=== PATIENT | female | born 1955 | race Caucasian/White ===

== ENCOUNTER 2019-10-15 08:47 | Day surgery (SDC) ==
--- NOTE | 2019-10-07 08:25 | EKG Report ---
Test Performed on : 10/07/2019 08:22:29 AM Test Reason : PAT Blood Pressure : / mmHG Vent. Rate : 058 BPM Atrial Rate : 058 BPM P-R Int : 112 ms QRS Dur : 150 ms QT Int : 514 ms P-R-T Axes : 017 011 134 degrees QTc Int : 504 ms Sinus bradycardia. Left bundle branch block Abnormal ECG When compared with ECG of 21-JAN-2016 03:05, T wave inversion no longer evident in Inferior leads T wave inversion more evident in Lateral leads Confirmed by Анна KAUR, Joey ([id number]) on 10/07/2019 8:42:01 AM
[2019-10-07 08:27] LABS: URINE SOURCE CLEAN CATCH
[2019-10-07 08:40] LABS: BILIRUBIN URINE NEGATIVE (NEGATIVE); BLOOD URINE NEGATIVE (NEGATIVE); COLOR YELLOW; GLUCOSE URINE NEGATIVE (NEGATIVE); KETONE URINE NEGATIVE (NEGATIVE); LEUKOCYTES URINE NEGATIVE (NEGATIVE); NITRITE URINE NEGATIVE (NEGATIVE); PH URINE 6.5; PROTEIN URINE NEGATIVE (NEGATIVE); SP GRAVITY URINE 1.018; TURBIDITY URINE CLEAR (CLEAR); UROBILINOGEN URINE NORMAL (NORMAL)
[2019-10-07 08:42] LABS: UR EPITHELIAL CELLS >10 /HPF (<10); URINE BACTERIA NEGATIVE /HPF; URINE RBC <10 /HPF (<10); URINE WBC <10 /HPF (<10)
[2019-10-07 08:45] LABS: BASO# 0.12 X1000 (0.0-0.2); BASO% 0.6 % (0.0-0.8); HEMATOCRIT 46.8 % (37.0-47.0); IMM GRAN# 0.83 X1000 (0.0-0.04); IMM GRAN% 3.9 % (0.0-0.5); LYMPH# 3.96 X1000 (1.2-3.4); LYMPH% 18.4 % (20.5-51.1); MCH 30.5 PG (27-31); MCHC 34.2 g/dL (33-37); MCV 89.1 FL (81-99); MONO# 1.89 X1000 (0.11-0.59); MONO% 8.8 % (1.7-9.3); MPV 9.5 FL (7.4-10.4); NEUT# 14.71 X1000 (1.4-6.5); NEUT% 68.3 % (42.2-75.2); PLT 451 X1000 (130-400); RBC 5.25 XMIL (4.2-5.4); RDW 13.4 % (11.5-14.5); WBC 21.51 X1000 (4.8-10.8)
[2019-10-07 08:50] LABS: HEMOGLOBIN A1C 5.3 % (4.8-6.0)
[2019-10-07 08:51] LABS: INR 0.94; PROTIME 12.7 Seconds (11.0-16.0)
[2019-10-07 08:52] LABS: PTT 21.6 Seconds (22.3-41.8)
[2019-10-07 09:03] LABS: CALCIUM 9.3 mg/dL (8.8-10.2); POTASSIUM 3.4 mmol/L (3.5-5.1)
[2019-10-15] MEDS ORDERED: VERSED ONE (08:55)
[2019-10-15] MEDS ORDERED: FENTANYL ONE (08:55)
[2019-10-15] MEDS ORDERED: DIPRIVAN 1% ONE (08:55)
[2019-10-15] MEDS ORDERED: LR 1,000 ML ONE (09:01)
[2019-10-15] MEDS ORDERED: PEPCID ONE (09:01)
[2019-10-15] MEDS ORDERED: KEFZOL 1 GM/D5W 1 GM/50 ML IVPB ONE (09:01)
[2019-10-15] MEDS ORDERED: REGLAN ONE (09:01)
[2019-10-15] MEDS ORDERED: LYRICA ONE (09:01)
[2019-10-15] MEDS ORDERED: COLACE ONE ×2 (09:13→09:17)
[2019-10-15] MEDS ORDERED: CELEBREX ONE (09:13)
[2019-10-15] MEDS ORDERED: SODIUM CHLORIDE 0.9% ONE (09:52)
[2019-10-15] MEDS ORDERED: TORADOL ONE (09:53)
[2019-10-15] MEDS ORDERED: DURAMORPH ONE (09:53)
[2019-10-15] MEDS ORDERED: MARCAINE 0.25% PF ONE (09:53)
[2019-10-15] MEDS ORDERED: VANCOMYCIN ONE (09:53)
[2019-10-15] MEDS ORDERED: CYKLOKAPRON 1,000 MG/NS 1,000 MG/100 ML IVPB ONE ×2 (09:53→09:54)
[2019-10-15] MEDS ORDERED: EXPAREL 1.3% ONE (09:54)
[2019-10-15] MEDS ORDERED: NEOSPORIN G.U. IRRIGANT ONE (09:54)
[2019-10-15 11:00] LABS: URINE SOURCE CATH
[2019-10-15 11:05] LABS: BILIRUBIN URINE NEGATIVE (NEGATIVE); BLOOD URINE NEGATIVE (NEGATIVE); COLOR YELLOW; GLUCOSE URINE NEGATIVE (NEGATIVE); KETONE URINE NEGATIVE (NEGATIVE); LEUKOCYTES URINE NEGATIVE (NEGATIVE); NITRITE URINE NEGATIVE (NEGATIVE); PROTEIN URINE NEGATIVE (NEGATIVE); SP GRAVITY URINE 1.019; TURBIDITY URINE CLEAR (CLEAR); UROBILINOGEN URINE NORMAL (NORMAL)
[2019-10-15 11:06] LABS: UR EPITHELIAL CELLS <10 /HPF (<10); URINE BACTERIA NEGATIVE /HPF; URINE RBC <10 /HPF (<10); URINE WBC <10 /HPF (<10)
[2019-10-15] MEDS ORDERED: XYLOCAINE-MPF 2% ONE (11:29)
[2019-10-15] MEDS ORDERED: SODIUM CHLORIDE 0.9% 10 ML ONE (11:29)
[2019-10-15] MEDS ORDERED: EPHEDRINE ONE (11:29)
[2019-10-15] MEDS ORDERED: ZOFRAN ONE (11:29)
[2019-10-15] MEDS ORDERED: DECADRON ONE (11:29)
[2019-10-15] MEDS ORDERED: OFIRMEV 1000 MG/ISOTONIC SOLN 1,000 MG/100 ML BOTTLE ONE (11:29)
[2019-10-15] MEDS ORDERED: NS 1,000 ML ONE (12:00)
[2019-10-15] MEDS ORDERED: MORPHINE IV PRN ×3 (12:30)
[2019-10-15] MEDS ORDERED: ZOFRAN IV PRN (12:30)
[2019-10-15] MEDS ORDERED: ZOFRAN ODT PO PRN (12:30)
[2019-10-15] MEDS ORDERED: OXY IR PO PRN (12:30)
[2019-10-15] MEDS ORDERED: OXY IR ONE (12:31)
--- NOTE | 2019-10-15 12:45 | Diag Imaging Result Doc PS360 ---
EXAM: KNEE 1-2 VIEWS-RIGHT 10/15/2019 HISTORY: post op total knee TECHNIQUE: Right knee two views COMMENT: There is a total knee arthroplasty. There is no evidence of fracture or other acute bony abnormality. IMPRESSION: Postsurgical changes. Electronically signed by Chilo South 10/15/2019 12:42 PM
[2019-10-15] MEDS: NS 1,000 ML IV SCH ×2 (12:49→20:39)
[2019-10-15] MEDS ORDERED: PNEUMOVAX 23 IM ONE (14:16)
[2019-10-15] MEDS: ULTRAM PO SCH ×2 (14:43→20:38)
[2019-10-15] MEDS: TYLENOL PO SCH ×2 (14:43→20:37)
[2019-10-15] MEDS: KEFZOL 1 GM/D5W 1 GM/50 ML IVPB IV SCH (18:00)
--- NOTE | 2019-10-15 19:44 | OPERATIVE NOTE ---
PROCEDURE DATE: 10/15/2019 PREOPERATIVE DIAGNOSIS: Degenerative joint disease, right knee. POSTOPERATIVE DIAGNOSIS: Degenerative joint disease, right knee. PROCEDURE: Right total knee replacement. SURGEON: Brianna Smith MD. [employer]ESTER: Morena Escalona. MsRegina Escalona was necessary for proper retraction and manipulation during the case. ANESTHESIA: Spinal. COMPLICATION: None. PROCEDURE IN DETAIL: A 64-year-old female who presents for right total knee replacement. Risks, benefits, and no guarantees were discussed and she is willing to proceed. She was taken to the operating room and satisfactory anesthesia obtained. The right knee was prepped and draped in usual sterile fashion. A time-out was taken to confirm operative site, procedure, and patient. The leg was wrapped with an Esmarch and tourniquet inflated to 300 mmHg. A midline incision was made over the front of the knee followed by quad tendon sparing arthrotomy. The patella was everted and resurfaced with freehand technique and subluxed laterally. With the knee flexed, an intramedullary hole was made in the distal femur and the distal femoral cutting block secured in 5 degrees of valgus. Then, 11 mm was taken off the distal femur to accommodate for flexion contracture preoperatively. The distal femur was sized to a size 5 Mesmo.tv femoral component. The 4-in-1 block was secured and the anterior, posterior, and chamfer cuts sequentially made. Any remaining osteophytes were debrided from the femur. The knee was flexed and a PCL retractor placed behind the tibia to protect the neurovascular bundle. The tibial cutting block was secured and the tibial resection made. Flexion and extension gaps were equal with roughly a 7 mm spacer. The tibia was sized to a size 5 tibial tray. A trial reduction was performed with trial components with good range of motion and stability. The patella was sized to a 35 medialized dome patella. The drill holes were placed for the patellar implant and femoral implant and the trial components removed. The bony surfaces were thoroughly irrigated with pulsatile lavage. Cement with a gram of vancomycin was utilized to cement a size 5 tibial base plate, a size 5 narrow cruciate retaining right femoral component and a 35 medialized dome patella. Excess cement was removed with a Padroni elevator. While the cement cured, the joint capsule was injected with Exparel and a Hemovac drain placed. After curing the cement, a size 5 cruciate retaining polyethylene bearing with a 7 mm thickness was inserted into the tibial tray and the knee reduced. Final range of motion was 0 to 120 degrees with midline patellar tracking, full extension and excellent soft tissue balance. The knee was copiously irrigated with irrigant and then closed over the drain with #1 Vicryl in the arthrotomy, 2-0 Vicryl in the subcutaneous and skin ranjana on the skin edges. Sterile dressings completed the closure and the patient was recovered from anesthesia and transferred to the recovery room in stable condition. No intraoperative complications were noted. Instrument count and sponge counts were correct at the time of closure. cc: Isidro Smith MD
--- NOTE | 2019-10-15 19:55 | ORTHOPAEDICS PROGRESS NOTE ---
DATE: 10/15/2019 Ms. Araiza is awake and alert at the present time. Vital signs are stable. She has been transferred to her room. She has yet to mobilize. We will plan on monitoring her and mobilizing her. She can be discharged home when she is mobilizing independently with a walker. Currently, she appears to be neurovascularly intact with no motor or sensory deficits. She is stable postoperatively. cc: Isidro Smith MD
[2019-10-15] MEDS: PERIDEX MT SCH (20:37)
[2019-10-15] MEDS: COLACE PO SCH (20:39)
[2019-10-15] MEDS: CELEBREX PO SCH (20:39)
[2019-10-15] MEDS ORDERED: DESYREL PO SCH (21:00)
[2019-10-15] MEDS: OXY IR PO PRN (22:53)
[2019-10-16] MEDS: KEFZOL 1 GM/D5W 1 GM/50 ML IVPB IV SCH (02:24)
[2019-10-16] MEDS: ULTRAM PO SCH ×2 (03:00→09:58)
[2019-10-16] MEDS: TYLENOL PO SCH ×2 (03:00→09:54)
[2019-10-16] MEDS: OXY IR PO PRN ×3 (06:16→13:09)
[2019-10-16] MEDS: NS 1,000 ML IV SCH (06:33)
[2019-10-16 06:46] LABS: HEMATOCRIT 36.8 % (37.0-47.0); HEMOGLOBIN 12.3 g/dL (12.0-16.0)
[2019-10-16 07:03] LABS: AGAP 10; BUN 9 mg/dL (8-22); CALCIUM 8.2 mg/dL (8.8-10.2); CHLORIDE 102 mmol/L (98-107); COSMO 278; CREATININE 0.7 mg/dL (0.5-0.9); ESTIMATED GFR > 60; GLUCOSE 123 mg/dL (70-104); POTASSIUM 4.2 mmol/L (3.5-5.1); SODIUM 139 mmol/L (136-145); TCO2 27 mmol/L (25-35)
[2019-10-16] MEDS ORDERED: COZAAR PO SCH (09:00)
[2019-10-16] MEDS ORDERED: PRILOSEC PO SCH (09:00)
[2019-10-16] MEDS ORDERED: PEPCID PO SCH (09:00)
[2019-10-16] MEDS ORDERED: ASPIRIN PO SCH (09:00)
[2019-10-16] MEDS ORDERED: HYDROCHLOROTHIAZIDE PO SCH (09:00)
[2019-10-16] MEDS: PERIDEX MT SCH (09:54)
[2019-10-16] MEDS: COLACE PO SCH (09:54)
[2019-10-16] MEDS: CELEBREX PO SCH (09:55)
--- NOTE | 2019-10-16 12:00 | ORTHOPAEDICS PROGRESS NOTE ---
DATE: 10/16/2019 Ms. Araiza is seen status post total knee replacement. At the present time, she is afebrile with stable vital signs. There is no active bleeding or signs of DVT or infection. She is mobilizing with therapy. We will discontinue all lines and discharge her home for home therapy. I will follow up with her in roughly a week to 10 days. She is to continue all her regular medicines including [place] as needed for pain, aspirin for DVT prophylaxis and Bactrim for and bacterial prophylaxis. We will see her back in the interim for any worsening signs or symptoms. cc: Isidro Smith MD
[2019-10-16 12:54] VITALS: BP 135/77
== END 2019-10-16 13:48 | disposition home or self-care (01) ==
LOC: OR 08:47 → 4N 08:47 → OR 10-16 13:48
PROVIDERS: ATTEND Orthopaedic Surgery Adult Reconstructive Orthopaedic Surgery